=== PATIENT | female | born 1985 | race Caucasian/White ===

== ENCOUNTER → 2024-04-08 08:22 | Outpatient (CLI) | payer OTHER, SELFPAY ==
--- NOTE | 2024-04-08 08:23 | DI.US.S_ITS ---
PROCEDURE: US PELVIC COMPLETE INDICATIONS: chronic cyclic RLQ pain, assess structural abnormality TECHNIQUE: Real-time scanning was performed of the pelvic organs, with image documentation. Additional endovaginal scanning was necessary due to incomplete visualization of the adnexal and endometrial structures by transabdominal scanning. COMPARISON: None. FINDINGS: Uterus: Uterus is anteverted and normal in size at 9.4 x 7.9 x 5.5 cm. The myometrium is heterogeneous. The endometrium measures 13 mm combined thickness. Left anterior intramural focus of heterogeneous echogenicity measuring 10 x 8 x 7 mm. Ovaries: The right ovary measures 3.1 x 1.9 x 1.7 cm, with a calculated ovarian volume of 5.2 cc. The left ovary measures 3.7 x 1.8 x 2.0 cm, with a calculated ovarian volume of 7.0 cc. Prominent left ovarian follicle is present measuring 1.2 x 1.3 x 1.2 cm. Other: No pathologic free abdominal or pelvic fluid. IMPRESSION: Unremarkable exam. We strive to produce accurate, complete, and clear reports of imaging services. To assist us in improving patient care, this report was composed using standard report templates and voice recognition software. Therefore, it may contain abnormal punctuation, insertions and/or omissions. Occasional wrong-word or sound-alike substitutions may occur. Though we review the report and make efforts to correct it, we do recommend that the report be read carefully in proper context to recognize any text inaccuracies. Dictated by: Eli Dean M.D. on 04/08/2024 at 16:46 Approved by: Eli Dean M.D. on 04/08/2024 at 16:48
== END ==
LOC: US 08:23
PROVIDERS: Referring Provider Obstetrics & Gynecology; Visit Provider Obstetrics & Gynecology
DX: R10.2 Pelvic and perineal pain (principal)
CPT/HCPCS: 76830; 76856

== ENCOUNTER 2024-07-15 06:34 | Day surgery (SDC) | payer OTHER, SELFPAY ==
[2024-07-12 10:36] VITALS: BMI 26.1
[2024-07-15] VITALS (9 sets, daily range): BP systolic 112–136; BP diastolic 68–89; PULSE 65–81; RESP 8–16; TEMP 36.2–36.7; O2SAT 96–100; BMI 26.1
[2024-07-15] MEDS: SODIUM CHLORIDE 0.9% 1,000 ML 100 ML IV (07:19)
--- NOTE | 2024-07-15 07:31 | PM.GYNHP.1 ---
History of Present Illness History of Present Illness Narrative: 38yo presents for scheduled operative procedure, diagnostic laparoscopy, lysis of adhesions, fulguration of endometriotic implants if found, peritoneal biopsy. Patient was last seen in office 06/08/24 for purposes of preoperative counseling. Patient denies significant changes in personal or family health history since time of last encounter. Today she queries if bilateral salpingectomy at time of procedure would be possible as she has completed childbearing/does not desire consideration of future . [facility] Medical History (Updated 04/08/24 @ 16:15 by Mar Treviño MD) Chronic RLQ pain Pelvic pain Social History Smoking Status: Former smoker Meds Home Medications and Allergies Home Medications Medication Instructions Recorded Confirmed Type tirzepatide (weight loss) 7.5 7.5 mg SUBCUT QWEEK 03/16/24 07/15/24 History mg/0.5 mL subcutaneous pen injector (Zepbound) Allergies Allergy/AdvReac Type Severity Reaction Status Date / Time azithromycin Allergy Mild Hives Verified 07/15/24 06:48 Penicillins Allergy Mild Verified 07/15/24 06:48 Review of Systems Review of Systems ROS: Yes All systems reviewed with the patient and are negative except as otherwise documented Exam Vital Signs (past 8 hours): - 07/15/24 06:57 Temperature 97.2 F L Pulse Rate 80 Respiratory Rate 16 Blood Pressure 134/84 Pulse Oximetry 99 Oxygen Delivery Method Room Air Oxygen Delivery Method Room Air Const General: cooperative, healthy appearing and comfortable Nutritional Appearance: average body habitus Orientation: alert, awake and oriented x3 Limitations: mental status not altered Resp Effort & Inspection: normal respiratory effort and able to speak in complete sentences Cardio Pulses: normal peripheral pulses GI Inspection: normal to inspection Palpation: soft Other: deferred Skin General: no rashes or lesions noted Neuro General: patient alert, patient awake and patient oriented x3 Extrem General: normal to inspection Psych Mental Status: mental status grossly normal Judgment: judgment good Assessment & Plan Assessment and plan (1) Pelvic pain: Status: Acute (2) Chronic RLQ pain: Status: Acute Plan 38yo presents for scheduled diagnostic laparoscopy, lysis of adhesions, fulguration of endometriotic implants if found, peritoneal biopsy Patient expresses desire for bilateral salpingectomy at time of procedure for purposes of permanent surgical sterilization. I reviewed with patient that this procedure is not covered by the current CPT code approved by her insurance for procedure (87616); office staff has started approval process for additional CPT code (90931) however this process will not able to be completed by end of business today. We reviewed that salpingectomy, therefore, will only be completed in restorationism of abnormal finding at time of laparoscopy. Patient declines recommendation to cancel today's procedure and reschedule if this is something that she strongly desires, states she would like to proceed with procedure today as originally scheduled anticipated postoperative course including activity restrictions reviewed. Patient verbalizes understanding and desires to proceed with procedure as scheduled Note 40min delay in start of case secondary to patient request for possible additional procedure dispo: to OR Time-Based Coding :: [TOTAL MINUTES] spent with patient and on the chart (including review of chart, obtaining history, exam, reviewing outside data, placing orders, documenting exam and treatment plan, and counseling patient) on [DATE].
--- NOTE | 2024-07-15 07:31 | PM.PREOP ---
Pre-operative Note Interval Note History & Physical reviewed/Exam performed by Physician: Yes Changes to H&P: No H&P completed within 30 days and has changed as indicated here:: 07/15/24 ASA Class (for procedural sedation): II
[2024-07-15] MEDS: BUPIVACAINE 0.5% W/ EPI (PF) 30 ML VIAL INJ (08:30)
[2024-07-15] MEDS: OXYCODONE IR 5 MG TABLET PO ×2 (09:31→10:36)
--- NOTE | 2024-07-15 09:38 | P.OP_ITS ---
Operative Date/Time/Diagnoses Date of procedure: 07/15/24 Time of procedure: 07:45 Pre-op diagnosis: chronic RLQ pain, dyspareunia Post-op diagnosis: same Procedure & Clinicians Procedure: diagnostic laparoscopy, lysis of adhesions, bilateral salpingectomy secondary to abnormal appearance of bilateral fallopian tubes Same procedure as scheduled: Yes Indications: acute on chronic RLQ pain, deep dyspareunia Surgeon: Mar Treviño Manager Business Intelligence: Mai Kenny Click Yes if Unassisted: No Anesthesia Type: General Operative Notes Findings: normal external female genitalia intra-abdominal survey with visualized adhesion of R ascending colon/cecum to R lateral peritoneal side wall atypical appearance of bilateral fallopian tubes, numerous paratubal cysts versus endometriotic vesicular cysts, clubbed appearance of R fallopian tube Closure Type: primary Specimen(s): other (bilateral fallopian tubes ) Estimated Blood Loss (mL): 5 Procedure in detail: The patient was taken to the operating room, placed on the operating table in the supine position and intubated with ETT.? The patient was then placed in the lithotomy position with her legs in Roe stirrups.? The patient was then examined under anesthesia with the above findings, then prepped and draped in a sterile fashion.? A whalen catheter was placed.? Time out was performed. A sterile sponge stick was placed in the vagina for purposes of atraumatic uterine manipulation. Attention was then turned to the abdominal portion of the case. A 5mm incision was made infraumbilically and abdominal entry was achieved under direct visualization using the 5mm VisaPort trocar.? Abdomen was insufflated to 15mmHg.? Two lateral 5-mm ports were placed in a similar manner under direct visualization.? The uterus was anteverted and abdominal survey was noted with findings as noted above. The Powerseal was used to dissect the left fallopian tubes away from the mesosalpinx. The fallopian tube was then amputated at the level of the cornua. Numerous paratubal cysts vs endometriotic vesicular impla nts were sharply burned to decrease the diameter of the specimen which was then removed intact via the ipsilateral side port under direct visualization. The same procedure was then carried out on the right. The adhesion of the R ascending colon to the adjacent lateral side wall was sharply dissected and released using the Powerseal taking great care to avoid thermal injury to the bowel. The appendix was visualized and was noted to be grossly wnl. Dissection beds were irrigated and irrigation fluid was removed with confirmation of hemostasis. The pneumoperitoneum was vented and trocars were removed under direct visualization. The skin of all incisions was closed using 4-0 monocryl in a subcuticular fashion followed by application of dermabond. The patient had her legs taken out of stirrups and was awakened from anesthesia, transported to PACU in stable condition. ? Complications: none Post-operative Condition: stable Disposition: PACU Plan for aftercare: dc to home pending clinical course, routine f/u in office as scheduled
--- NOTE | 2024-07-18 | PATH_ITS ---
[facility] Accession Number: [id number] No. of containers..02 Tissue . 01 Material submitted: . PART A: fallopian tube - RT FALLOPIAN TUBE PART B: fallopian tube - LT FALLOPIAN TUBE . 01 Diagnosis: A. RIGHT FALLOPIAN TUBE, SEGMENT EXCISION: Complete cross section from fallopian tube without pathologic abnormalities. . B. LEFT FALLOPIAN TUBE, SEGMENT EXCISION: Complete cross section from fallopian tube without pathologic abnormalities. MRV 07/20/2024 1420 Local . 01 Electronically signed: . Jose A Schroeder MD, Pathologist NPI- [id number] . 01 Gross description: . A. Received in formalin with two patient identifiers and right fallopian tube, is a fimbriated fallopian tube, 7.1 cm in length by 1.1 cm in diameter, with violaceous, smooth serosa and no cysts identified. The lumen is stellate and unremarkable, and financial services representative sections to include one-half of bisected fimbriae and cross sections are submitted in cassette A1. B. Received in formalin with two patient identifiers and left fallopian tube, is a fragmented, fimbriated fallopian tube reapproximated to measure 6.8 cm in length and up to 0.9 cm in diameter. The serosa is violaceous and smooth with no cysts identified. The lumen is stellate and tortuous. Referral Rn sections to include one-half of bisected fimbriae and cross sections are submitted in B1. ([id number]) /MRV 07/19/2024 1532 Local . 01 Pathologist provided ICD-10: N94.5, R10.2 . 01 CPT . 522305, [id number] Specimen Comment: A duplicate report has been generated due to demographic updates. Performed at: [address] [facility] [address], [place], [place] [id number] MD Osei Wylie MD Phone: [phone]
== END 2024-07-15 10:54 | disposition home or self-care (01) ==
PROVIDERS: PCP Physician Assistant; Referring Provider Obstetrics & Gynecology; Visit Provider Obstetrics & Gynecology
PROC: (CPT 58661; principal; 2024-07-15 07:45)
DX: N94.12 Deep dyspareunia (principal); N73.6 Female pelvic peritoneal adhesions (postinfective); R10.31 Right lower quadrant pain; N94.5 Secondary dysmenorrhea; R10.2 Pelvic and perineal pain; G89.29 Other chronic pain; Z87.891 Personal history of nicotine dependence
CPT/HCPCS: 58661; J1100; J1885; J2405; J2704; J3010

== ENCOUNTER → 2024-09-08 09:03 | Outpatient (CLI) | payer OTHER, SELFPAY ==
[2024-09-08 13:04] LABS: Appearance Urine UA CLEAR; Bilirubin Urine UA NEGATIVE (NEGATIVE); Color Urine UA YELLOW; Glucose Urine UA NEGATIVE (Negative); Ketones Urine UA NEGATIVE (NEGATIVE); Leukocyte Esterase Urine UA NEGATIVE (NEGATIVE); Nitrite Urine UA NEGATIVE (Negative); Occult Blood Urine UA NEGATIVE (Negative); Protein Urine UA NEGATIVE (Negative); Specific Gravity Urine UA 1.015 (1.000-1.035); Urobilinogen Urine UA 0.2 E.U./dL (0.2)
[2024-09-08 13:13] LABS: pH Urine UA 5.5 (4.5-8.0)
[2024-09-08 13:14] LABS: Bacteria Urine Moderate (10-30); Culture Indicated Urine Cult Not Indicated; RBC Urine None Seen (0-5/HPF); Squamous Epithelial Cell Urine 1-5 /HPF (0-5/HPF); Urine Volume 10mL (spun); WBC Urine 0-1/HPF (0-5/HPF)
== END ==
PROVIDERS: PCP Physician Assistant; Visit Provider Obstetrics & Gynecology Gynecology
DX: R10.2 Pelvic and perineal pain (principal); N39.0 Urinary tract infection, site not specified
CPT/HCPCS: 81001; 87086